=== PATIENT | female | born 1990 | race African-American/Black ===

== ENCOUNTER 2017-12-18 20:31 | Emergency (ER) | payer MEDICARE, MEDICAID ==
--- NOTE | 2017-12-18 23:33 | ER Document Report ---
ED General - General Mode of Arrival: Medic Information source: Patient TRAVEL OUTSIDE OF THE [place] IN LAST 30 DAYS: No <FARHAT LEAL - Last Filed: 12/18/17 23:51> <MP GEE - Last Filed: 12/19/17 02:50> - General Chief Complaint: Suicidal Ideation Stated Complaint: ANXIETY Time Seen by Provider: 12/18/17 21:37 Notes: 27 y.o female presents to the ED with anxiety attack, and is passively suicidal without a plan. She denies taking any medication for her anxiety but states that she does have anxiety medication. Pt states that she has relations with a man [facility] who has been talking to another woman who also stays at the [facility]. She states that it got back to her that this man had told the girl that he wants to her and that made her angry. She reports that she feels unsafe staying at the [facility] and doesn't want to sleep there next to strangers anymore. She asked someone at the [facility] to get her to be brought to the ED because she didn't want to stay at the [facility] anymore. She states that she just keeps having visions of "driving her car off a rick or something". Pt states that she has family in [place] who she does not communicate with often. She denies doing anything to hurt herself today, only that her moods are up and down all day and that she is not able to control her anxiety or her anger. Pt admits to a chance of , but states that her last menstrual period was the beginning of this month. Pt reports that all her medications are new. (FARHAT LAEL) - Related Data Allergies/Adverse Reactions: No Known Allergies Allergy (Unverified 12/18/17 20:34) Past Medical History - General Information source: Patient - Social History Smoking Status: Never Smoker Chew tobacco use (# tins/day): No Drug Abuse: None Family History: Reviewed & Not Pertinent Patient has suicidal ideation: Yes Patient has homicidal ideation: No Renal/ Medical History: Denies: Hx Peritoneal Dialysis Psychiatric Medical History: Reports: Hx Bipolar Disorder <FARHAT LEAL - Last Filed: 12/18/17 23:51> Review of Systems - Review of Systems Neurological/Psychological: See HPI, Anxiety, Suicidal ideation - no plan <FARHAT LEAL - Last Filed: 12/18/17 23:51> Physical Exam <FARHAT LEAL - Last Filed: 12/18/17 23:51> <MP GEE - Last Filed: 12/19/17 02:50> - Vital signs Vitals: Temp Pulse Resp BP Pulse Ox 98.7 F 69 16 140/80 H 97 12/18/17 20:41 12/18/17 20:41 12/18/17 20:41 12/18/17 20:41 12/18/17 20:41 - Notes Notes: PHYSICal EXAM General: Drowsy, easily arousable. HEENT: Normocephalic. Atraumatic. PERRLA. Extraocular movements intact. Oropharynx clear. Neck: Supple. Lungs: Clear to auscultation bilaterally, no wheezes, rales, or rhonchi. No respiratory distress. Heart: Regular rate and rhythm. No murmurs, gallops, or rubs. Abdominal: Normal Inspection. No distension. Extremities: Moves all four extremities. Neurological: Cranial nerves II-XII grossly intact bilaterally. Normal cognition. AAOx4. Normal speech. Psychological: Flat affect. Skin: Warm. Dry. Normal color. (FARHAT LEAL) Course <FARHAT LEAL - Last Filed: 12/18/17 23:51> - Laboratory Result Diagrams: 12/19/17 00:36 12/19/17 00:36 <MP GEE - Last Filed: 12/19/17 02:50> - Re-evaluation Re-evalutation: 12/19/17 Patient is a 27-year-old female with a history of anxiety and depression who is recently [facility] in a [facility]. Had an argument with her possible boyfriend. Patient does not want to take her medications. She is passively suicidal. Patient is medically stable can be evaluated by mental health if she so chooses in the morning. (MP GEE) - Vital Signs Vital signs: Temp Pulse Resp BP Pulse Ox 98.7 F 69 16 140/80 H 97 12/18/17 20:41 12/18/17 20:41 12/18/17 20:41 12/18/17 20:41 12/18/17 20:41 - Laboratory Laboratory results interpreted by me: 12/19/17 00:36 Chloride 109 H Total Protein 6.0 L Salicylates < 1.0 L Acetaminophen < 10 L Discharge <FARHAT LEAL - Last Filed: 12/18/17 23:51> <MP GEE - Last Filed: 12/19/17 02:50> - Discharge Clinical Impression: Suicidal ideation, Anxiety Condition: Stable Disposition: HOME, SELF-CARE Instructions: Suicidal Ideation ([facility]), Anxiety ([facility]) Scribe Attestation: 12/19/17 02:49 I personally performed the services described in the documentation, reviewed and edited the documentation which was dictated to the scribe in my presence, and it accurately records my words and actions. (MP GEE) Scribe Documentation - Scribe Written by Kasia:: Kasia Marsh [id number] 12/18/17 acting as scribe for :: Heather <FARHAT LEAL - Last Filed: 12/18/17 23:51>
[2017-12-19 01:23] LABS: ABSOLUTE EOSINOPHILS # (AUTO) 0.2 10^3/uL (0.0-0.6); ABSOLUTE LYMPHOCYTES (AUTO) 1.9 10^3/uL (0.5-4.7); ABSOLUTE MONOCYTES (AUTO) 0.7 10^3/uL (0.1-1.4); ABSOLUTE NEUT (AUTO) 5.8 10^3/uL (1.7-8.2); BASOPHILS % (AUTO) 0.3 % (0-2); EOSINOPHILS % (AUTO) 1.9 % (0-6); HEMATOCRIT 36.9 % (36.0-47.0); HEMOGLOBIN 12.2 g/dL (12.0-15.5); LYMPHOCYTES % (AUTO) 22.6 % (13-45); MEAN CORPUSCULAR VOLUME 88 fl (80-97); MONOCYTES % (AUTO) 7.8 % (3-13); PLATELET COUNT 246 10^3/uL (150-450); RED BLOOD COUNT 4.21 10^6/uL (3.72-5.28); RED CELL DISTRIBUTION WIDTH 13.2 % (11.5-14.0); SEGMENTED NEUTROPHILS % (AUTO) 67.4 % (42-78); TOTAL CELLS COUNTED % (AUTO) 100 %; WHITE BLOOD COUNT 8.6 10^3/uL (4.0-10.5)
[2017-12-19 01:30] LABS: ALANINE AMINOTRANSFERASE 44 U/L (9-52); ALBUMIN 3.6 g/dL (3.5-5.0); ALKALINE PHOSPHATASE 81 U/L (38-126); ANION GAP 11 (5-19); ASPARTATE AMINO TRANSFERASE 30 U/L (14-36); BILIRUBIN,DIRECT 0.2 mg/dL (0.0-0.4); BILIRUBIN,TOTAL 0.2 mg/dL (0.2-1.3); BLOOD UREA NITROGEN 12 mg/dL (7-20); CALCIUM 9.5 mg/dL (8.4-10.2); CARBON DIOXIDE 24 mmol/L (22-30); CHLORIDE 109 mmol/L (98-107); GLUCOSE 84 mg/dL (75-110); POTASSIUM 4.2 mmol/L (3.6-5.0)
[2017-12-19 01:33] LABS: ACETAMINOPHEN < 10 ug/mL (10-30); ALCOHOL < 10 mg/dL (NONE DETECTED); SALICYLATE < 1.0 mg/dL (2.0-20.0)
[2017-12-19 06:39] VITALS: BP 135/70
--- NOTE | 2017-12-19 08:33 | EKG REPORT ---
SEVERITY:- NORMAL ECG - SINUS RHYTHM : Confirmed by: Noam Perez MD 19-Dec-2017 08:33:20
--- NOTE | 2017-12-19 09:10 | PSYCHOLOGICAL NOTE ---
Psych Note - Psych Note Psych Note: Reason for consult: suicidal ideation Please note patient as another chart [id number] pt brought in by EMS pt was having a stressful day , pt is [facility] the [facility], pt depressed having suicidal thoughts, pt has not plan, pt has no hallucinations, pt does have thoughts of harming others No medication recommendations at this time Diagnosis: 296.45 (F 31.73) Bipolar 1 Disorder V60.0 (Z 59.0) homelessness Impression/plan: Patient is cleared from acute psychiatric services. She is recommended to follow-up with her outpatient therapy/medication management provider at [facility]. Clinician observed patient's visit is related to homelessness , wanting a job (patient came in to [facility] ED earlier in the day asking to speak to clinician and Dr. Reyes about a job), and wanting to change or adjust her medications. This patient is known to this clinician and department, she is currently at her baseline; there is no indication of christina or psychosis (ie organize, linear thought processes, good eye contact, normal conversational speech). She denies current suicidal and homicidal ideation. Consulted with Dr. Reyes regarding the management and care of patient; attending physician is in agreement with recommendations and disposition.
--- NOTE | 2017-12-19 09:31 | ER Document Report ---
Doctor's Note Notes: 12/19/17 09:30 27-year-old female with past medical history of anxiety who presents with some anxiety and some passive suicidal ideations after the patient had some discordance with a boyfriend at a [facility]way. Patient currently denies any suicidal or homicidal ideations. Patient denies any pain. Patient denies any auditory or visual hallucinations. Vital signs as recorded. Labs as recorded. The psychology team is seen and evaluated the patient and does not feel that she meets criteria for IVC. They will provide outpatient follow-up with strict return precautions at [facility]. Patient is comfortable with this plan.
[2017-12-19 09:41] LABS: APPEARANCE,URINE CLOUDY; BILIRUBIN,URINE NEGATIVE (NEGATIVE); COLOR,URINE YELLOW; GLUCOSE, URINE NEGATIVE (NEGATIVE); KETONES,URINE NEGATIVE (NEGATIVE); LEUKOCYTE ESTERASE,URINE NEGATIVE (NEGATIVE); NITRITE,URINE NEGATIVE (NEGATIVE); PROTEIN,URINE NEGATIVE (NEGATIVE); URINE SPECIFIC GRAVITY 1.026; UROBILINOGEN,URINE NEGATIVE mg/dL (<2.0)
[2017-12-19 09:57] LABS: URINE AMPHETAMINES SCREEN NEGATIVE; URINE BARBITURATES SCREEN NEGATIVE; URINE BENZODIAZEPINES SCREEN NEGATIVE; URINE COCAINE SCREEN NEGATIVE; URINE MARIJUANA (THC) SCREEN NEGATIVE; URINE METHADONE SCREEN NEGATIVE; URINE PHENCYCLIDINE SCREEN NEGATIVE
== END 2017-12-19 10:40 | disposition home or self-care (01) ==
LOC: ER 20:31
DX: R45.851 Suicidal ideations (principal); F41.9 Anxiety disorder, unspecified; F31.9 Bipolar disorder, unspecified
CPT/HCPCS: 36415; 80053; 80307; 81001; 81025; 84703; 85025; 93005; 93010; 99285